=== PATIENT | female | born 1960 | race Native Hawaiian/Other Pacific Islander ===

== ENCOUNTER → 2024-11-25 | Outpatient (CLI) | payer BC, SELFPAY ==
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
== END | disposition home or self-care (01) ==
LOC: RAD 14:12
PROVIDERS: Referring Provider Surgery Plastic and Reconstructive Surgery; Visit Provider Surgery Plastic and Reconstructive Surgery
DX: S63.601A Unspecified sprain of right thumb, initial encounter (principal)
CPT/HCPCS: 73140

== ENCOUNTER → 2024-12-12 | Outpatient (CLI) | payer BC, SELFPAY | END | disposition home or self-care (01) | PROVIDERS: PCP Family Medicine; Referring Provider Surgery Plastic and Reconstructive Surgery; Visit Provider Surgery Plastic and Reconstructive Surgery | DX: S63.601A Unspecified sprain of right thumb, initial encounter (principal); S53.449A Ulnar collateral ligament sprain of unspecified elbow, initial encounter | CPT/HCPCS: 73218 ==

== ENCOUNTER 2025-01-13 08:30 | Outpatient (RCR) | payer BC, SELFPAY ==
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
--- NOTE | 2025-01-13 08:54 | HP.OTDCSUM ---
Discharge Summary D/C Summary: It has been my pleasure to treat LAURA BAUTISTA under orders from Dr. Mumtaz Ludwig MD, for the diagnosis of right hand/wrist pain for a total of 5 visit(s). Please see the following information for a summary of their discharge status. Overall Improvement % Improvement: 10 Objective Objective/Function: therapist has ed. pt on her dx. use of bracing and how to avoid stress on ulnar side of thumb with pinching and use of ADLs and IADls. Therapist ed. pt on an off the shelf brace specific for her dx. pt did not want to buy this at this time. Pt feels she has noticed her thumb feels better when performing her daily tasks. pt states feels confident in cont. protective carmen. to avoid excessive stress on right thumb UCL. pt has made gains with right living nurse strength increase from 15# to 40# Goals Patient Goals: Regain Strength, Decrease Pain, Improve Fine Motor Skills, Use Hand/Wrist/Arm Normally Again and Be More Independent in ADLS Goal:: pt will demo a increase in right living nurse strength by 10# to increase pts ind. with ADls by d/c ( goal met) pt will demo a increase in right lateral and tripod pinch by 3# to increase pts ind. with ADLs and IADLs. ( progressing) Goal:: pt will report no pain greater than 2/10 with use of right hand with ADLs by d.c (progressing) Goal:: Pt will demo understanding of joint protection and ergonomics when performing BADLs and IADLs by d/c ( goal met) Goal:: Pt will demo understanding of work/lifting and carry ergonomics to decrease stress on tendons to increase pts independent with ADLs, IADLS and work tasks by d/c. (goal met) Pt will demo understanding of using supportive bracing 80% of workday/ADLS to decrease stress on tendon origin to allow healing and decrease pain by end of 2nd session. Plan Plan: avoid wide gripping- ed. on dx D/C Information Discharge Comments: pt agrees to D/c. she will cont with protective carmen. until she feels she would want to undergo sx. d/c sentence: If there are questions or concerns regarding this patient's occupational therapy, please fell free to call me at [phone]. Thank you for the referral of this patient. Sincerely, Jennifer Mathews, ALMAR/Joan, CHT
== END 2025-01-13 09:59 | disposition home or self-care (01) ==
LOC: OT 08:30
PROVIDERS: PCP Family Medicine; Referring Provider Surgery Plastic and Reconstructive Surgery; Visit Provider Surgery Plastic and Reconstructive Surgery
DX: S63.501D Unspecified sprain of right wrist, subsequent encounter (principal); S53.449D Ulnar collateral ligament sprain of unspecified elbow, subsequent encounter
CPT/HCPCS: 97110; 97166; 97530